=== PATIENT | male | born 1970 | race Caucasian/White ===

== ENCOUNTER 2023-07-20 09:01 | Emergency (ER) | payer MEDICAID ==
[~2023-07-20] VITALS: Ht 180.3 cm; Wt 91.0 kg
[2023-07-20 09:13] VITALS: O2SAT 100
[2023-07-20 10:14] VITALS: BP 129/87; PULSE 78; RESP 19; TEMP 98.4
== END 2023-07-20 10:15 | disposition home or self-care (01) ==
LOC: ER 09:01 → EDBD 09:01 → ER 10:15
DX: D17.0 Benign lipomatous neoplasm of skin and subcutaneous tissue of head, face and neck (principal)
CPT/HCPCS: 99281